=== PATIENT | male | born 1980 | race Hispanic/Latino ===

== ENCOUNTER 2024-03-15 04:40 | Emergency (ER) | payer SELFPAY ==
[~2024-03-15] VITALS: Ht 172.7 cm; Wt 81.6 kg
--- NOTE | 2024-03-15 04:44 | NUR ---
UA CUP PROVIDED
[2024-03-15] MEDS ORDERED: AMOX1TAB16 PO (05:06)
--- NOTE | 2024-03-15 05:06 | ERN ---
ED Note History of Present Illness Stated Complaint: COUGH, SINUS PRESSURE, PAINFUL UA Chief Complaint: Multiple Complaints Time Seen by MD: 05:02 Dictation: Patient comes to the ED. comes because of some cough congestion runny nose sinus pressure. Also to in his last this was URI symptoms the last few days. And the UA symptom was just to the last one day. No falls trips traumas no chest pain or shortness of breath no previous medical problems taking medications Allergies: Coded Allergies: No Known Allergies (Unverified Allergy, Unknown, 03/15/24) Past Medical History Past Medical History: No Pertinent History Surgical History: None Review of System Dictation Constitutional: Negative for fever,chills, and weight loss Eyes: Negative for injury, pain,redness, and discharge ENT: Negative for injury,pain or swelling Cardiovascular: Negative for chest pain, palpitations, and edema Respiratory: Cough congestion runny nose Abdomen/GI: Negative for abdominal pain, nausea, vomiting, diarrhea, and constipation Back: Negative for injury and pain : Negative for injury, bleeding and discharge MS/Extremity: Negative for injury and deformity Skin: Negative for rash, and discoloration Neuro: Negative for headache, weakness, numbness, tingling, and seizure Psych: Negative for suicide ideation, homicidal ideation, and hallucinations Initial Vital Sign VS Vital Signs Date Time Temp Pulse Resp B/P (MAP) Pulse Ox O2 Delivery O2 Flow Rate FiO2 03/15/24 04:41 98.4 110 20 165/85 100 Room Air Physical Exam Dictation General: awake, alert, NAD Head/Face: Normocephalic, atraumatic Eyes: PERRL, EOMI, vision at baseline ENT: oral cavity clear, TMs clear, no signs of infection Neck: Trachea midline, supple, no nuchal rigidity Cardiovascular: RRR, normal S1/S2, No MRGs, no JVD Respiratory: CTAB, no respiratory distress, No rales or wheezes Abdomen: Soft, non-tender, non-distended, normal bowel sounds, no guarding or rebound. Skin: Warm, dry, normal turgor, no rash MS/Extremity: Pulses equal, no cyanosis, neurovascular intact, FROM Neuro: COAx4, GCS 15, strength 5/5, CN 2-12 intact, normal cerebellar exam, norm al gait, Psych: Normal behavior, mood, and affect normal A nurse was present in front of triage nurse the entire time ED Course ED Course Vital Signs Date Time Temp Pulse Resp B/P (MAP) Pulse Ox O2 Delivery O2 Flow Rate FiO2 03/15/24 04:41 98.4 110 20 165/85 100 Room Air Medical Decision Making MDM Told the patient that it is likely viral syndrome and/or bronchitis denies any COVID or flu contacts. Terms of the urinary symptoms. Mucinous denies any rhoda hematuria. He said this was just a small speck of blood and microscopic spica blood at the end of the penis denies any new sexual contacts. He denies any dysuria to me. I did review triage note. While examining the patient have him talk. I am doing CVA flank pain examination. There is no wincing grimace change in facial expression. Also to. Listening to the abdomen using the stethoscope to palpate on the abdomen. He has no wincing or grimacing change in facial pressure or any abdominal pain patient is stable for outpatient management with supportive management some antibiotics he patient was agreeable with this no indication for lab work or imaging for a viral syndrome. I do not have any signs of pyelonephritis etc. nephrolithiasis. Etcetera DX & DISP Disposition: Discharge Departure Impression: Primary Impression: Cough Condition: Stable Scripts Amoxicillin/Potassium Clav (Amox Tr-K Clv 875-125 mg Tab) 875 Mg-125 Mg Tablet 1 TAB PO BID for 10 Days, #20 TAB 0 Refills Prov: CARA DAY MD 03/15/24 CARA DAY MD Mar 15, 2024 05:06
[2024-03-15 05:26] VITALS: BP 132/74; PULSE 98; RESP 18; TEMP 99.2; O2SAT 98
== END 2024-03-15 05:25 | disposition home or self-care (01) ==
LOC: EDH 04:40
DX: R05.9 Cough, unspecified (principal); R09.81 Nasal congestion
CPT/HCPCS: 99283